=== PATIENT | male | born 1990 | race Caucasian/White ===

== ENCOUNTER 2016-12-22 19:24 | Emergency (ER) | payer SELFPAY ==
[~2016-12-22 19:24] MED LIST: AMOXICILLIN500 M1 PO; AMOXICILLIN875 MG PO; BENADRYL25 M1 PO; CIPRO PO; KEFLEX500 MG PO; NAPROSYN-EC500 M1 PO; NO MEDICATIONS; PREDNISONE50 MG PO; PROMETHAZINE D118 ML PO; ROBAXIN 750750 M1; TYLENOL #3 PO; [UNRECOGNIZED DRUG - REMARK]
[2016-12-22 20:35] LABS: INFLUENZA A NEG (NEG); INFLUENZA B NEG (NEG)
== END 2016-12-22 21:02 | disposition home or self-care (01) ==
LOC: SED 19:24
PROVIDERS: Nurse Practitioner
DX: J06.9 Acute upper respiratory infection, unspecified (principal)
CPT/HCPCS: 87651; 87804; 99283